=== PATIENT | male | born 1965 | race American Indian/Alaskan Native ===

== ENCOUNTER 2017-12-21 08:34 | Emergency (ER) | payer MEDICARE ==
[2017-12-21 08:46] VITALS: BP 116/74
--- NOTE | 2017-12-21 09:20 | XRay Report ---
Chest 2 views: History: Cough, shortness of breath, fever. Findings: Normal cardiomediastinal silhouette. Trachea is midline. No consolidation, pneumothorax or pleural effusion. Impression: No acute cardiopulmonary findings.
[2017-12-21] MEDS ORDERED: MOTRIN ONE (10:37)
[2017-12-21] MEDS ORDERED: MOTRIN PO ONE (10:38)
--- NOTE | 2017-12-21 10:41 | Emergency Department Report ---
- General Chief Complaint: Upper Respiratory Infection Stated Complaint: COLD Time Seen by Provider: 12/21/17 10:20 Source: patient Mode of arrival: Ambulatory Limitations: No Limitations - History of Present Illness Initial Comments: Patient is a 52-year-old black male who is presenting with 1 week of cough, congestion. Patient is HIV positive but doesn't know CD4 count. Patient is complaining of some body aches and sneezing chills. Patient denies any nausea vomiting diarrhea chest pain or abdominal pain at this time. Patient states the cough is productive of yellow to clear sputum. - Related Data Previous Rx's Medication Instructions Recorded Last Taken Type ALBUTEROL Inhaler [ProAir HFA 2 puff IH QID PRN #1 inhalation 12/21/17 Unknown Rx Inhaler] Doxycycline [Vibramycin CAP] 100 mg PO Q12HR #14 capsule 12/21/17 Unknown Rx Ibuprofen [Motrin] 600 mg PO Q8H PRN #20 tablet 12/21/17 Unknown Rx traMADol [Ultram] 50 mg PO Q6HR PRN #10 tablet 12/21/17 Unknown Rx Allergies Allergy/AdvReac Type Severity Reaction Status Date / Time quetiapine [From Seroquel] Allergy Anaphylaxis Verified 12/21/17 08:46 ED Review of Systems ROS: Stated complaint: COLD Other details as noted in HPI Comment: All other systems reviewed and negative ED Past Medical Hx - Past Medical History Hx HIV: Yes - Surgical History Past Surgical History?: No - Social History Smoking Status: Current Every Day Smoker Substance Use Type: None - Medications Home Medications: Home Medications Medication Instructions Recorded Confirmed Last Taken Type ALBUTEROL Inhaler [ProAir HFA 2 puff IH QID PRN #1 inhalation 12/21/17 Unknown Rx Inhaler] Doxycycline [Vibramycin CAP] 100 mg PO Q12HR #14 capsule 12/21/17 Unknown Rx Ibuprofen [Motrin] 600 mg PO Q8H PRN #20 tablet 12/21/17 Unknown Rx traMADol [Ultram] 50 mg PO Q6HR PRN #10 tablet 12/21/17 Unknown Rx ED Physical Exam - General Limitations: No Limitations General appearance: alert, in no apparent distress - Head Head exam: Present: atraumatic, normocephalic - Eye Eye exam: Present: normal appearance - ENT ENT exam: Present: mucous membranes moist - Neck Neck exam: Present: normal inspection - Respiratory Respiratory exam: Present: normal lung sounds bilaterally. Absent: respiratory distress, wheezes, rales, rhonchi - Cardiovascular Cardiovascular Exam: Present: regular rate, normal rhythm. Absent: systolic murmur, diastolic murmur, rubs, gallop - GI/Abdominal GI/Abdominal exam: Present: soft, normal bowel sounds. Absent: distended, tenderness, guarding, rebound - Rectal Rectal exam: Present: deferred - Extremities Exam Extremities exam: Present: normal inspection - Back Exam Back exam: Present: normal inspection - Neurological Exam Neurological exam: Present: alert, oriented X3 - Psychiatric Psychiatric exam: Present: normal affect, normal mood - Skin Skin exam: Present: warm, dry, intact, normal color. Absent: rash ED Course Vital Signs 12/21/17 08:43 Temperature 97.5 F L Pulse Rate 89 Respiratory 16 Rate Blood Pressure 116/74 O2 Sat by Pulse 94 Oximetry ED Medical Decision Making - Radiology Data Chest 2 views: History: Cough, shortness of breath, fever. Findings: Normal cardiomediastinal silhouette. Trachea is midline. No consolidation, pneumothorax or pleural effusion. Impression: No acute cardiopulmonary findings. Transcribed By: PTP Dictated By: GILLIAN FIELDS MD Electronically Authenticated By: GILLIAN FIELDS MD Signed Date/Time: 12/21/17 0911 - Medical Decision Making This is a 52-year-old black male who is presenting with cough or congestion. Patient's lungs are clear to auscultation patient is no acute distress chest x- ray was read to be within normal limits. Patient will be treated with antibiotics for acute bronchitis his increased risk factor needed for the need of antibiotics is HIV positive status. The patient also be given meds for symptomatic relief. Critical care attestation.: If time is entered above; I have spent that time in minutes in the direct care of this critically ill patient, excluding procedure time. ED Disposition Clinical Impression: Acute bronchitis Disposition: DC-01 TO HOME OR SELFCARE Is pt being admited?: No Does the pt Need Aspirin: No Condition: Stable Instructions: Acute Bronchitis (ED) Referrals: PRIMARY CARE, [Primary Care Provider] - 3-5 Days
== END 2017-12-21 10:46 | disposition home or self-care (01) ==
LOC: ED 08:34
DX: J20.9 Acute bronchitis, unspecified (principal); F17.200 Nicotine dependence, unspecified, uncomplicated
CPT/HCPCS: 71046; 99283